=== PATIENT | female | born 1990 | race Two or more races ===

== ENCOUNTER 2018-05-12 09:54 | Emergency (ER) | payer OTHER ==
[2018-05-12 10:07] VITALS: O2SAT 99
--- NOTE | 2018-05-12 10:36 | ED PDOC ---
Lower Extremity Pain/Injury Time Seen by Provider: 05/12/18 10:12 Chief Complaint (Nursing): Lower Extremity Problem/Injury Chief Complaint (Provider): right posterior leg pain x 4 days History Per: Patient History/Exam Limitations: no limitations Onset/Duration Of Symptoms: Days Current Symptoms Are (Timing): Still Present Additional Complaint(s): 28 yo female presents at 26 weeks for evaluation of right posterior leg pain for 4 days. Pt states she has history of DVT and has been taking lovanox. Pt also reports tingling in the right foot. No fever/chills. No SOB. Pt denies vaginal bleeding and states she has been feeling the baby move. Past Medical History Reviewed: Historical Data, Nursing Documentation, Vital Signs Vital Signs: Last Vital Signs Temp 98.3 F 05/12/18 10:06 Pulse 80 05/12/18 10:06 Resp 18 05/12/18 10:06 BP 107/71 05/12/18 10:06 Pulse Ox 99 05/12/18 10:06 - Medical History PMH: Deep Vein Thrombosis, Seizures - Surgical History Surgical History: Appendectomy - Family History Family History: States: No Known Family Hx - Living Arrangements Living Arrangements: With Family - Social History Current smoker - smoking cessation education provided: No Alcohol: None Drugs: Denies - Allergies Allergies/Adverse Reactions: Allergies Allergy/AdvReac Type Severity Reaction Status Date / Time No Known Allergies Allergy Verified 05/12/18 10:14 Review of Systems ROS Statement: Except As Marked, All Systems Reviewed And Found Negative Constitutional: Negative for: Fever, Chills Musculoskeletal: Positive for: Other Physical Exam - Reviewed Nursing Documentation Reviewed: Yes Vital Signs Reviewed: Yes - Physical Exam Appears: Positive for: Well, Non-toxic, No Acute Distress Head Exam: Positive for: ATRAUMATIC, NORMAL INSPECTION, NORMOCEPHALIC Skin: Positive for: Normal Color, Warm, DRY Eye Exam: Positive for: Normal appearance ENT: Positive for: Normal ENT Inspection Neck: Positive for: Normal, Painless ROM Cardiovascular/Chest: Negative for: Bradycardia, Tachycardia Respiratory: Negative for: Accessory Muscle Use, Respiratory Distress Pulses-Dorsalis Pedis (L): 2+ Pulses-Dorsalis Pedis (R): 2+ Pulses-Post. Tibialis (L): 2+ Pulses-Post. Tibialis (R): 2+ Back: Positive for: Normal Inspection Extremity: Positive for: Normal ROM, Other (Sensation of toes intact ). Negative for: Swelling Neurologic/Psych: Positive for: Alert, Oriented - ECG O2 Sat by Pulse Oximetry: 99 Medical Decision Making Medical Decision Making: Discussed with Dr. Lee. (-) DVT on US. Dr. Burciaga aware and would like patient sent up stairs for monitoring. Disposition - Clinical Impression Clinical Impression: Right leg pain - Patient ED Disposition Is Patient to be Admitted: No Counseled Patient/Family Regarding: Diagnosis, Need For Followup - Disposition Disposition: Routine/Home Disposition Time: 11:58 Condition: STABLE Instructions: Muscle and Bone Pain (DC) Forms: [employer] (Dominican)
--- NOTE | 2018-05-12 11:21 | US ---
Date of service: 05/12/2018 PROCEDURE: Right lower extremity venous duplex Doppler. HISTORY: pain, hx dvt, 26 weeks COMPARISON: None available. TECHNIQUE: Common femoral, superficial femoral, popliteal and posterior tibial veins were evaluated. Flow was assessed with color Doppler, compressibility, assessment of phasic flow and augmentation response. FINDINGS: COMMON FEMORAL VEIN: Unremarkable. SUPERFICIAL FEMORAL VEIN: Unremarkable. POPLITEAL VEIN: Unremarkable. POSTERIOR TIBIAL VEIN: Unremarkable. OTHER FINDINGS: None. IMPRESSION: No evidence of deep venous thrombosis in the right lower extremity.
--- NOTE | 2018-05-12 13:22 | OBHP ---
Datetime: 05/12/2018 13:17 IP Adm Impression: , intrauterine IP Chief Complaint Other: leg pain IP Admit Plan: Observation/Evaluation; Discharge home Admit Comment, IP Provider: Pt is a @ 26.3 wks presented to main ER with right thigh and pain b ehind the knee. Patient has a history of DVT and currently on Lovenox, pt has a history of seizures a nd is currently on Lamictal. Pt reports the pain has been occuring for past couple of days, no skin c hanges, no asymmetrical swelling, otherwise no vaginal bleeding, leaking, +FM, no contractions. Luis A nina was evaluated in main ER, LE doppler ruled out DVT. Vital signs stable, O2 saturation = 100%. NST is reassuring, 140 mod merrick, +accels, no decels and no contractions. Patient to be discharge home, pre cautions given and follow up in office in the next 2 wks Pelvic Type - PN: Adequate Extremities - PN: Normal Abdomen - PN: Normal Back - PN: Normal Breast - PN: Normal Lungs - PN: Normal Heart - PN: Normal Thyroid - PN: Normal Neurologic - PN: Normal HEENT - PN: Normal General - PN: Normal FHR - Baseline A Provider: 140 Contraction Comments Provider: none Vital Signs Provider: Reviewed; Within Normal Limits NICHD Variability Prov Fetus A: Moderate 6-25bpm NICHD Accel Fetus A IP Provider: [id number] NICHD Decel Fetus A IP Provider: None Genitourinary Exam: Normal DTRs - PN: Normal
--- NOTE | 2018-05-12 13:22 | OBDCSUM ---
Datetime: 05/12/2018 13:18 Discharged to, Provider: Other Follow up at, Provider: Dr Burciaga Disch Instr Activity: Normal activity Disch Instr Diet: Regular Discharge Time: 05/12/2018 13:19 Follow up in weeks, Provider: per appt Discharge Diagnosis Prov Other: leg pain
[2018-05-13 14:11] VITALS: BP 109/59; PULSE 98; RESP 17; TEMP 98.4
== END 2018-05-12 12:23 | disposition home or self-care (01) ==
LOC: H.ER 09:54 → H.EROB2 09:54 → H.EROB 12:35
DX: O26.92 Pregnancy related conditions, unspecified, second trimester (principal); M79.651 Pain in right thigh; Z3A.26 26 weeks gestation of pregnancy

== ENCOUNTER 2018-08-10 09:22 | Inpatient (IN) | payer OTHER ==
[2018-08-10] MEDS ORDERED: Lactated Ringer's 1,000 ML IV ONE (09:54)
[2018-08-10 09:57] VITALS: BMI 29.9
[2018-08-10] MEDS: Lactated Ringer's 1,000 ML IV SCH (10:30)
[2018-08-10 11:42] LABS: PROTHROMBIN TIME 11.3 Seconds (9.8-13.1)
[2018-08-10 11:44] LABS: PARTIAL THROMBOPLASTIN TIME 26.6 Seconds (25.6-37.1)
[2018-08-10 21:36] LABS: BASO # 0.1 K/uL (0.0-0.2); BASO % 1.4 % (0.0-2.0); EOS # 0.1 K/uL (0.0-0.7); HEMOGLOBIN 13.6 g/dL (12.0-16.0); LYMPH # 2.5 K/uL (1.0-4.3); LYMPH % 23.7 % (20.0-40.0); MEAN CELL VOLUME 97.2 fl (81.0-99.0); MEAN CORPUSCULAR HEMOGLOBIN 33.9 pg (27.0-31.0); MEAN CORPUSCULAR HGB CONC 34.9 g/dL (33.0-37.0); MEAN PLATELET VOLUME 9.6 fl (7.2-11.7); MONO # 0.9 K/uL (0.0-0.8); MONO % 8.9 % (0.0-10.0); NEUT # 6.7 K/uL (1.8-7.0); NRBC % 0.1 % (0.0-0.0); RED CELL DISTRIBUTION WIDTH 12.7 % (11.5-14.5); WHITE BLOOD COUNT 10.4 K/uL (4.8-10.8)
--- NOTE | 2018-08-11 09:20 | OBPN ---
Datetime: 08/11/2018 09:17 IP Informed Consent Obtain: Vaginal Delivery IP Progress Plan: Continue present management Membranes, Provider: Intact FHR - Baseline A Provider: 125 IP Progress Note Comment: Patient evaluated, feeling some contractions but comfortable. VE=L/T/C as per previous MD IMM=153 mod merrick, +accels, no decels TOCO= ctxning q 5 mins A/P 1. patient evaluated, feeling increased contractions, declines pain medication at this time 2. Continue with Cytotect for induction 3. CEFM and TOCO Vital Signs Provider: Reviewed; Within Normal Limits NICHD Accel Fetus A IP Provider: 15X15 NICHD Variability Prov Fetus A: Moderate 6-25bpm NICHD Decel Fetus A IP Provider: None Datetime: 08/10/2018 10:27 Contraction Comments Provider: none FHR Category Provider Fetus A: Category I Dilatation, Provider: closed
--- NOTE | 2018-08-11 16:55 | OBPN ---
Datetime: 08/11/2018 13:49 IP Informed Consent Obtain: Vaginal Delivery IP Progress Plan: Continue present management FHR - Baseline A Provider: 125 IP Progress Note Comment: Patient evaluated, comfortable, does not want pain medication at this time VE=deferred FHR = 125 mod merrick, +accels, no decels TOCO = ctxning q 3-5 mins A/P 1. Continue current plan for induction Cytotec 50mcg PO q 4 hours 2. Continue or compression stockings for DVT prophylaxis - history of DVT and factor v heterzy gous 3. Continue Lamictal 125mg PO BID for history of epilepsy - no other precautions while being induc ed 4. CEFM and TOCO Vital Signs Provider: Reviewed; Within Normal Limits NICHD Accel Fetus A IP Provider: [id number] NICHD Variability Prov Fetus A: Moderate 6-25bpm NICHD Decel Fetus A IP Provider: None
[2018-08-12] MEDS: Lactated Ringer's 1,000 ML IV SCH ×2 (07:30→15:30)
[2018-08-12] MEDS ORDERED: Nalbuphine 20 mg/ml Inj (1 ml) IVP ONE (12:13)
[2018-08-12] MEDS ORDERED: Fentanyl/Bupivacaine HCl 250 ML EPI ONE (14:57)
--- NOTE | 2018-08-12 16:00 | OBPN ---
Datetime: 08/12/2018 11:20 IP Procedures Other: Cook catheter placement IP Informed Consent Obtain: Vaginal Delivery; Induction of Labor IP Progress Plan: Continue present management; Induction Membranes, Provider: Intact FHR - Baseline A Provider: 150 Gestation - Est Wks by US: 40.5 Presentation-Admit: Vertex Vital Signs Provider: Reviewed; Within Normal Limits NICHD Accel Fetus A IP Provider: 15X15 FHR Category Provider Fetus A: Category I NICHD Variability Prov Fetus A: Moderate 6-25bpm NICHD Decel Fetus A IP Provider: None Datetime: 08/12/2018 09:24 Contraction Comments Provider: Sporadic IP Progress Note Comment: S: Began feeling some contractions early this morning, reports small amoun t of bloody discharge O: see exam section A/P: 28 year old admitted 08/10 for IOL secondary to maternal history of Factor V Leiden and E pilepsy. So far patient has received 1 cervidil and 6 doses of cytotec. Cervix is still unfavorable f or pitocin - Plan was to place Cook catheter, however there are none in stock in the hospital. If we can't ge t one from a surrounding hospital in the next 1-[address] another cervidil - Factor V: patient has been off Heparin for >48 hours, SCDs ordered - Epilepsy: continue Lamictal - There is a reported history of suspected LGA, last US done 1 week ago (that record is not availa ble) and parents reports EFW just over 8 lbs, Sanya's consistent with approximately 8 1/2 lbs - presentation confirmed vertex by US - GBS negative OB Hospitalist on-call. Pt seen on rounds this morning. She was given Cervidil and Cytotec. Con dition and treatment plan discussed. She understands. MAHNDO Dilatation, Provider: 1 Effacement, Provider: 10 Station, Provider: -3
--- NOTE | 2018-08-12 16:01 | OBPN ---
Datetime: 08/12/2018 16:00 IP Progress Note Comment: Pt feel better after epidural. Pitoicn was at 6miu/h and stopped for anes thesia. Will re-start Pitocin FHR Category Provider Fetus A: Category I
[2018-08-13] MEDS: Lactated Ringer's 1,000 ML IV SCH ×2 (09:00→17:03)
[2018-08-13] MEDS ORDERED: Fentanyl/Bupivacaine HCl 250 ML EPI ONE ×2 (09:35→20:56)
[2018-08-14] MEDS: Lactated Ringer's 1,000 ML IV SCH ×2 (04:00)
[2018-08-14] MEDS ORDERED: Oxytocin 30 units/LR 500ML 30 UNITS/500 ML BAG IV ONE (04:19)
[2018-08-14] MEDS ORDERED: OXYTOCIN/0.9 % NS 20 UNIT/1,000 ML BAG IV SCH ×2 (04:30→11:45)
[2018-08-14] MEDS ORDERED: ceFAZolin IV 2 gm in Dextrose 2 GM/50 ML BAG IVPB ONE (06:34)
[2018-08-14] MEDS ORDERED: Lidocaine 2% PF (10 ml) Amp ONE (06:46)
[2018-08-14] MEDS ORDERED: Phenylephrine 10 mg/ml Inj ONE (07:03)
[2018-08-14] MEDS ORDERED: Lidocaine 2% MPF (5 ml) Inj ONE (07:03)
[2018-08-14] MEDS ORDERED: Morphine 1 mg/ml preservative-free Inj(Duramorph) ONE ×2 (07:33→08:14)
--- NOTE | 2018-08-14 08:24 | OBDS ---
DELIVERY PERSONNEL Delivery Doctor: Jhon Greco MD Internal Medicine Specialist: Anali Friedman RN MATERNAL INFORMATION Delivery Anesthesia: Epidural Medications in Delivery: Pitocin, cytotec, cervidil, lamectal, ancef (Annotations: Data stored by Sherri on behalf of user) Placenta Cultured: No Maternal Complications: None Provider Comments: see operative report LABOR SUMMARY EDC: 08/15/2018 00:00 No. Babies in Womb: 1 Attempted: No Labor Anesthesia: None LABOR INFORMATION Reason for Induction: Not Applicable Cervical Ripening Agents: Rubio Balloon Other Ripening Agents: see mar Group B Beta Strep: Negative MEMBRANES Membranes Rupture Method: Artificial Amniotic Fluid Color: Bloody Amniotic Fluid Amount: Moderate Amniotic Fluid Odor: None STAGES OF LABOR Stage 3 hrs: 0 Stage 3 min: 1 BABY A INFORMATION Delivery Date/Time: 08/14/2018 07:41 Method of Delivery: Born in Route : No : N/A Forceps: N/A Vacuum Extraction: N/A Shoulder Dystocia : No SHOULDER DYSTOCIA BABY A Delivery Date/Time: 08/14/2018 07:41 PRESENTATION/POSITION BABY A Presentation: Cephalic (Annotations: Data stored by [facility] on behalf of user) PLACENTA INFORMATION BABY A Placenta Delivery Time : 08/14/2018 07:42 Placenta Method of Delivery: Manual Removal Placenta Status: Delivered SCORES BABY A Heart Rate 1 min: >100 bpm Resp Effort 1 min: Good Cry Reflex Irritability 1 min: Cough or Sneeze or Pulls Away Muscle Tone 1 min: Active Motion Color 1 min: Body [place], Extremities Blue Resuscitation Effort 1 min: Tactile Stimulation SCORE 1 MIN: 9 Heart Rate 5 min: >100 bpm Resp Effort 5 min: Good Cry Reflex Irritability 5 min: Cough or Sneeze or Pulls Away Muscle Tone 5 min: Active Motion Color 5 min: Body [place], Extremities Blue Resuscitation Effort 5 min: N/A SCORE 5 MIN: 9 INFANT INFORMATION BABY A Gestational Age at Delivery: 39.6 Gestational Status: Term Outcome : Liveborn Infant Condition : Stable Sex: Male IDENTIFICATION/MEDS BABY A ID Band Number: [id number] WEIGHT/LENGTH BABY A Infant Birthweight (gms): 4050 Weight (lb): 8 Weight (oz): 15 CORD INFORMATION BABY A No. Cord Vessels: 3 Nuchal Cord : N/A Cord Blood Taken: Yes Suction: Mouth
[2018-08-14] MEDS ORDERED: DiphenhydrAMINE 50 mg/ml Inj IVP PRN ×2 (08:43→11:45)
[2018-08-14] MEDS ORDERED: Oxycodone/Acetaminophen 5/325 mg Tab PO PRN ×2 (08:49→15:26)
[2018-08-14] MEDS ORDERED: Enoxaparin 40 mg Syringe SC SCH (09:00)
[2018-08-14] MEDS ORDERED: Multivitamin With Minerals Tab PO SCH (09:00)
[2018-08-14] MEDS ORDERED: Lactated Ringer's 1,000 ML IV SCH (11:45)
[2018-08-14 12:53] LABS: HEMOGLOBIN 11.6 g/dL (12.0-16.0); MEAN CELL VOLUME 98.2 fl (81.0-99.0); MEAN CORPUSCULAR HEMOGLOBIN 33.8 pg (27.0-31.0); MEAN CORPUSCULAR HGB CONC 34.4 g/dL (33.0-37.0); RBC 3.44 Mil/uL (3.80-5.20); RED CELL DISTRIBUTION WIDTH 12.6 % (11.5-14.5); WHITE BLOOD COUNT 12.9 K/uL (4.8-10.8)
[2018-08-14 13:03] LABS: ALB/GLOB RATIO 0.9 (1.0-2.1); ALBUMIN 2.5 g/dL (3.5-5.0); ALT/SGPT 30 U/L (9-52); AST/SGOT 34 U/L (14-36); BLOOD UREA NITROGEN 14 mg/dl (7-17); CALCIUM 8.5 mg/dL (8.4-10.2); GFR NON-AFRICAN AMERICAN > 60
[2018-08-14] MEDS ORDERED: Enoxaparin 40 mg Syringe SC STA (19:57)
[2018-08-14] MEDS: Oxycodone/Acetaminophen 5/325 mg Tab PO PRN (20:20)
[2018-08-15] MEDS: Oxycodone/Acetaminophen 5/325 mg Tab PO PRN ×2 (02:01→05:46)
[2018-08-15 06:28] LABS: HEMOGLOBIN 12.7 g/dL (12.0-16.0); MEAN CELL VOLUME 97.6 fl (81.0-99.0); MEAN CORPUSCULAR HEMOGLOBIN 33.4 pg (27.0-31.0); MEAN CORPUSCULAR HGB CONC 34.2 g/dL (33.0-37.0); RBC 3.8 Mil/uL (3.80-5.20); RED CELL DISTRIBUTION WIDTH 12.8 % (11.5-14.5); WHITE BLOOD COUNT 14.1 K/uL (4.8-10.8)
--- NOTE | 2018-08-15 08:21 | OP ---
PROCEDURE DATE: 08/14/18 PREOPERATIVE DIAGNOSIS: Arrest of descent despite adequate uterine contractions. POSTOPERATIVE DIAGNOSIS: Arrest of descent despite adequate uterine contractions. OPERATION PERFORMED: A primary low flap transverse section via Pfannenstiel skin incision. SURGEON: Celestino Greco MD STEEL DIE ENGRAVER: Dr. Elida Marshall. ANESTHESIA: Epidural. ANESTHESIA ADMINISTERED BY: Dr. Jung. ESTIMATED BLOOD LOSS: 800 mL. URINE OUTPUT: Rubio catheter put out approximately 100 mL of clear urine. INTRAVENOUS FLUIDS: The patient received 800 mL of D5 LR intraoperatively. OPERATIVE FINDINGS: Baby boy, vertex presentation, Apgars 9 and 9, weighing 4050 g, 8 pounds 15 ounces. Normal uterus, tubes, and ovaries were identified. DESCRIPTION OF PROCEDURE: After informed consent was obtained, the patient was taken to the operating room where she was given epidural anesthesia. She was then prepped and draped in a normal sterile fashion with a leftward tilt. A Pfannenstiel skin incision was then made with a scalpel and carried down to the underlying layer of fascia. The fascia was nicked in the midline. The fascial incision was then extended laterally with the curved Green scissors. The superior aspect of the fascial incision was then grasped with Sarah clamps, elevated up, and the rectus muscles were dissected off using both sharp and blunt dissection. Attention was then turned to the inferior aspect of the fascial incision, which in similar fashion was grasped with Sarah clamps, elevated up, and the rectus muscles were dissected off using both sharp and blunt dissection. The rectus muscles were then in the midline. The peritoneum identified and entered sharply with the Metzenbaum scissors. Peritoneal incision was then extended superiorly and inferiorly with good visualization of the bladder. The bladder blade was inserted. The vesicouterine peritoneum was identified and entered sharply with the Metzenbaum scissors. Incision was then extended laterally. The bladder flap was created digitally. Bladder bed was then readjusted and lower transverse incision was made with the scalpel. The incision was then extended laterally with the bandage scissors. The 's head was then delivered atraumatically. The nose and mouth were suctioned with DeLee suction trap. The cord was clamped and cut. The was handed off to awaiting pediatricians. The placenta was then removed manually. The uterus was exteriorized and cleared of all clots and debris. The uterine incision was repaired with 0 Vicryl in a running locked fashion. A second layer of the same suture was used to obtain excellent hemostasis. The uterus was returned to the abdomen. The gutters were packed. The abdomen was copiously irrigated. The irrigant was removed with a suction device and the incision was noted to be hemostatic. The packing was removed. The peritoneum was then closed with 2-0 Vicryl in a running fashion. The muscle was reapproximated with 0 Vicryl in an interrupted fashion and the skin was closed with 3-0 on a Sg needle. All sponge, lap, needle, and instrument counts were correct x2 and the patient was taken to recovery room in awake and stable condition. Celestino Greco MD
[2018-08-15] MEDS ORDERED: Enoxaparin 40 mg Syringe SC SCH (09:00)
[2018-08-15] MEDS: Multivitamin With Minerals Tab PO SCH (09:49)
--- NOTE | 2018-08-15 10:28 | OBPPN ---
Datetime: 08/15/2018 10:24 PP Pain Prov: Within normal limits PP Nausea Prov: Denies PP Flatus Prov: Yes PP Breasts Prov: Normal PP Heart Prov: Normal PP Lungs Prov: Normal PP Abdomen/Uterus Prov: Normal PP Lochia Prov: Normal PP Vulva/Perineum Prov: Normal PP CVA Tenderness Prov: Normal PP Extremities Prov: Normal PP Comments Phys Exam Prov: Fundus firm under umbilicus Incision clean/dry/intact PP Impression Prov: Normal progression PP Plan Prov: Continue present management PP Progress Note Prov: Patient denies CP, no SOB, no N/V, tolerating PO diet, ambulating/voiding wel l, mild lochia, abdominal pain tolerable with meds, +flatus A/p 1. Continue current postop orders 2. Percocet/Motrin prn pain 3. Lovenox 80mg SQ BID daily and Lamictal 125mg PO BID 4. Encourage ambulation/ IP PP Procedures: None Vital Signs Provider PP: Reviewed; Within Normal Limits
[2018-08-15] MEDS ORDERED: Promethazine 12.5 MG in Sodium Chloride 0.9% 50 ML IVPB PRN (15:19)
[2018-08-15] MEDS ORDERED: BENZOCAINE SPR MM PRN (15:42)
[2018-08-15] MEDS: Lactated Ringer's 1,000 ML IV SCH ×2 (16:00→22:15)
--- NOTE | 2018-08-15 16:14 | PCM.PROC ---
Procedures Attestation:: I certify that I have explained the specified Operation(s) or Procedure(s), risks, benefits and reasonable alternatives to the Patient and/or other person responsible. The opportunity was given to ask questions and all questions answered - Feeding Tube Replacement Type of Tube: nasogastric Insertion Site Prior to Procedure: clean Tube Used for Reinsertion: Bard Georgian Tube Size (F): 16 Verification of Placement: KUB Tube Secured by: tape/dressing Patient Tolerated Procedure: well, no complications Additional comments: Called by Dr. Burciaga for NGT placement assistance for post op ileus. NGT inserted in the Left nares and secured at 55cm. Patient tolerated well. An initial 350cc of bilious gastric output immediately returned. Confirmation of placement with CXR which shows adequate placement of NGT. Cont NGT on LCWS at a pressure of 80mmhg. Can clamp if patient would like to ambulate.
--- NOTE | 2018-08-15 16:18 | OBPPN ---
Datetime: 08/15/2018 15:55 PP Pain Prov: Within normal limits PP Nausea Prov: Present PP Flatus Prov: No PP BM Prov: No PP Breasts Prov: Normal PP Heart Prov: Normal PP Lungs Prov: Normal PP Abdomen/Uterus Prov: Abnormal PP Lochia Prov: Normal PP Vulva/Perineum Prov: Normal PP CVA Tenderness Prov: Normal PP Extremities Prov: Normal PP C/S Incision Prov: Normal PP Progress Prov: Normal PP Comments Phys Exam Prov: abdomen distended, high pitched bowel sounds in all 4 quadrants PP Progress Note Prov: Patient evaluated - vomited about 5 times bilious material, nauseous and has abdominal distention. Patient ambulating minimal, mild lochia, no flatus, abdominal pain appropriate A/P 1. Patient evaluated and suspicious for an ileus. Discussed plan of care with patient, strict NPO, strict I's/Os, CBC/CMP, LR @ 150 mL 2. vice president corporate communications present and assisted with inserting NG tube and attaching to wall suction 3. X-ray ordered to confirm placement 4. Will convert all meds to IV Vital Signs Provider PP: Reviewed
[2018-08-15 16:34] LABS: ALB/GLOB RATIO 0.9 (1.0-2.1); ALBUMIN 2.8 g/dL (3.5-5.0); ALT/SGPT 22 U/L (9-52); AST/SGOT 33 U/L (14-36); BLOOD UREA NITROGEN 11 mg/dl (7-17); CALCIUM 9.3 mg/dL (8.4-10.2); GFR NON-AFRICAN AMERICAN > 60
--- NOTE | 2018-08-15 16:35 | RAD ---
Date of service: 08/15/2018 HISTORY: NGT placement COMPARISON: No prior. FINDINGS: LUNGS: A nasogastric tube is identified placed terminating at the left upper quadrant abdomen. No acute pulmonary disease appreciated bilaterally. PLEURA: No significant pleural effusion identified, no pneumothorax apparent. CARDIOVASCULAR: No aortic atherosclerotic calcification present OSSEOUS STRUCTURES: No significant abnormalities. VISUALIZED UPPER ABDOMEN: Gas seen mildly distending small large-bowel loops in the upper abdomen as imaged. OTHER FINDINGS: None. IMPRESSION: Adequate nasogastric tube deployment. No acute infiltrates or pleural effusion bilaterally. No pulmonary vascular congestion.
[2018-08-15 16:50] LABS: BASO % 0.2 % (0.0-2.0); HEMOGLOBIN 12.4 g/dL (12.0-16.0); LYMPH # 0.8 K/uL (1.0-4.3); LYMPH % 5.6 % (20.0-40.0); MEAN CELL VOLUME 99.3 fl (81.0-99.0); MEAN CORPUSCULAR HEMOGLOBIN 33.9 pg (27.0-31.0); MEAN CORPUSCULAR HGB CONC 34.1 g/dL (33.0-37.0); MEAN PLATELET VOLUME 9.6 fl (7.2-11.7); MONO # 0.6 K/uL (0.0-0.8); MONO % 4.6 % (0.0-10.0); NEUT # 12.2 K/uL (1.8-7.0); NEUT % 89.6 % (50.0-75.0); PLATELET COUNT 177 K/uL (130-400); RBC 3.67 Mil/uL (3.80-5.20); RED CELL DISTRIBUTION WIDTH 12.8 % (11.5-14.5); WHITE BLOOD COUNT 13.6 K/uL (4.8-10.8)
[2018-08-15 20:19] LABS: BANDS 2 % (0-2); LYMPHOCYTE 8 % (20-50); MONOCYTE 5 % (0-10); NEUTROPHIL 85 % (42-75); TOTAL CELLS COUNTED 100
[2018-08-15 20:20] LABS: ANISOCYTOSIS SLIGHT; PLATELET ESTIMATE NORMAL (NORMAL)
--- NOTE | 2018-08-15 20:38 | OBPPN ---
Datetime: 08/15/2018 20:28 PP Pain Prov: Within normal limits PP Nausea Prov: Denies PP Flatus Prov: No PP Breasts Prov: Normal PP Heart Prov: Normal PP Lungs Prov: Normal PP Abdomen/Uterus Prov: Normal PP Lochia Prov: Normal PP Vulva/Perineum Prov: Normal PP CVA Tenderness Prov: Normal PP Extremities Prov: Normal PP Comments Phys Exam Prov: Abdomen decreased in distention PP Progress Note Prov: Patient evaluated, feeling increased burping, no flatus as of yet, no new N/V , abdominal distention improving, abdominal pain tolerable, ambulating minimal, voiding well, NG tube output 450mL bilious fluid A/P 1. Patient slowly improving, minimal fluid coming from tube, total now 450 greenish bilious fluid. Patient reports increased burping, no flatus yet. 2. Plan is if still minimal fluid draining, +BS and +flatus, will cap tube in the AM and wait for patient to be re-evaluated for possible PO oral intake. 3. Otherwise continue Lovenox 80mg SQ and all other orders Vital Signs Provider PP: Reviewed; Within Normal Limits
[2018-08-15] MEDS: Enoxaparin 40 mg Syringe SC SCH (21:05)
[2018-08-16] MEDS: Lactated Ringer's 1,000 ML IV SCH ×2 (05:16→23:23)
--- NOTE | 2018-08-16 08:10 | OBPPN ---
Datetime: 08/16/2018 08:01 PP Pain Prov: Within normal limits PP Nausea Prov: Denies PP Flatus Prov: Yes PP BM Prov: Yes PP Breasts Prov: Normal PP Heart Prov: Normal PP Lungs Prov: Normal PP Abdomen/Uterus Prov: Normal PP Lochia Prov: Normal PP Vulva/Perineum Prov: Normal PP CVA Tenderness Prov: Normal PP Extremities Prov: Normal PP Comments Phys Exam Prov: Fundus firm under umbilicus Incision clean/dry/intact Abdomen soft, non-tender except at incision area, +BS in all 4 quadrants PP Progress Note Prov: Patient feeling well, denies CP, no SOB, no N/V, minimal ambulation, voiding well, abdominal pain improved, passing flatus and +BM, mild lochia, NG output overnight 200cc of dark bilious material, otherwise 2000cc of urine overnight A/P POD #2 1. Patient overall improving. Abdomen noticeably less distended, patient burping and passing flatu s, +multiple BM. +BS heard in all four quadrants this morning. 2. NG tube capped, will observe for 4 hours to see that patient continues improvement 3. Continue postoperative orders - lamictal this morning to be given via NG tube. Continue all oth er medications IV 4. Otherwies continue ambulation/ Vital Signs Provider PP: Reviewed; Within Normal Limits
[2018-08-16] MEDS: Multivitamin With Minerals Tab PO SCH (08:40)
--- NOTE | 2018-08-16 10:01 | OBPPN ---
Datetime: 08/16/2018 09:40 PP Progress Note Prov: OB Hospitalist on-call...sign out rec'd...will have surgery follow up for pos t op ileus/NG tube. Contacted Dr Hall
[2018-08-16] MEDS: Enoxaparin 40 mg Syringe SC SCH (21:16)
[2018-08-17] MEDS: Lactated Ringer's 1,000 ML IV SCH ×3 (06:15→14:50)
--- NOTE | 2018-08-17 08:13 | CP.PCM.PN ---
<Dean Law - Last Filed: 08/17/18 08:10> Subjective - Date & Time of Evaluation Date of Evaluation: 08/17/18 Time of Evaluation: 08:11 - Subjective Subjective: SURGERY NOTE FOR DR. CORREIA 28F seen and examined at bedside. Patient states she has been having flatus and bowel movements. She admits to tolerating liquid diet. Objective - Vital Signs/Intake and Output Vital Signs (last 24 hours): Temp Pulse Resp BP Pulse Ox 98.5 F 08/15/18 09:55 - Medications Medications: Current Medications Benzocaine (Topex Anesthetic) 1 spr MM PRN PRN PRN Reason: Pain, Mild (1-3) Last Admin: 08/15/18 16:38 Dose: 1 spr Diphenhydramine HCl (Benadryl) 50 mg IVP Q6 PRN PRN Reason: Itching / Pruritus Docusate Sodium (Colace) 100 mg PO BID [facility] Last Admin: 08/16/18 08:39 Dose: Not Given Enoxaparin Sodium (Lovenox) 40 mg SC DAILY@2100 K[facility]; Protocol Last Admin: 08/16/18 21:16 Dose: 40 mg Promethazine HCl 12.5 mg/ (Sodium Chloride) 50.5 mls @ 101 mls/hr IVPB Q6 PRN PRN Reason: Nausea/Vomiting Lactated Ringer's (Lactated Ringer's) 1,000 mls @ 150 mls/hr IV .Q6H40M [facility] Last Admin: 08/17/18 06:15 Dose: 150 mls/hr Ibuprofen (Motrin Tab) 600 mg PO Q6H [facility] Last Admin: 08/16/18 15:00 Dose: Not Given Ketorolac Tromethamine (Toradol) 15 mg IVP Q6 PRN PRN Reason: Pain, Mild (1-3) Last Admin: 08/17/18 06:13 Dose: 15 mg Lamotrigine (Lamictal) 125 mg PO BID [facility] Last Admin: 08/16/18 17:30 Dose: 125 mg Morphine Sulfate (Morphine) 1 mg IVP Q6 PRN PRN Reason: Pain, moderate (4-7) Last Admin: 08/15/18 16:07 Dose: 1 mg Multivitamins/Minerals (Therapeutic-M Tab) 1 tab PO DAILY [facility] Last Admin: 08/16/18 08:40 Dose: Not Given Ondansetron HCl (Zofran Inj) 4 mg IVP Q6 PRN PRN Reason: Nausea/Vomiting Last Admin: 08/15/18 11:03 Dose: 4 mg Oxycodone/Acetaminophen (Percocet 5/325 Mg Tab) 1 tab PO Q4 PRN PRN Reason: Pain, moderate (4-7) Stop: 08/17/18 08:50 Last Admin: 08/15/18 05:46 Dose: 1 tab Oxycodone/Acetaminophen (Percocet 5/325 Mg Tab) 2 tab PO Q6 PRN PRN Reason: Pain, severe (8-10) Stop: 08/17/18 15:27 Sennosides (Senokot Tab) 17.2 mg PO HS [facility] Last Admin: 08/16/18 21:21 Dose: Not Given - Labs Labs: 08/15/18 15:48 08/15/18 15:48 PT 11.3 Seconds (9.8-13.1) 08/10/18 11:10 INR 1.0 08/10/18 11:10 APTT 26.6 Seconds (25.6-37.1) 08/10/18 11:10 - Constitutional Appears: Non-toxic, No Acute Distress - Respiratory Exam Respiratory Exam: Clear to Ausculation Bilateral, NORMAL BREATHING PATTERN - Cardiovascular Exam Cardiovascular Exam: REGULAR RHYTHM, +S1, +S2 - GI/Abdominal Exam GI & Abdominal Exam: Soft. absent: Distended, Firm, Guarding, Rigid, Tenderness, Rebound - Neurological Exam Neurological Exam: Alert, Awake - Skin Skin Exam: Dry, Intact, Normal Color, Warm Assessment and Plan - Assessment and Plan (Free Text) Assessment: 28F post Op ileus s/p , resolved. Plan: - advance diet as tolerated - monitor for further BMs Discussed with Dr. Rafael Law, PGY3 <Jack Correia - Last Filed: 08/17/18 12:29> Objective - Vital Signs/Intake and Output Vital Signs (last 24 hours): Temp Pulse Resp BP Pulse Ox 98.5 F 08/15/18 09:55 - Medications Medications: Current Medications Benzocaine (Topex Anesthetic) 1 spr MM PRN PRN PRN Reason: Pain, Mild (1-3) Last Admin: 08/15/18 16:38 Dose: 1 spr Diphenhydramine HCl (Benadryl) 50 mg IVP Q6 PRN PRN Reason: Itching / Pruritus Docusate Sodium (Colace) 100 mg PO BID [facility] Last Admin: 08/17/18 10:32 Dose: 100 mg Enoxaparin Sodium (Lovenox) 80 mg SC DAILY [facility]; Protocol Promethazine HCl 12.5 mg/ (Sodium Chloride) 50.5 mls @ 101 mls/hr IVPB Q6 PRN PRN Reason: Nausea/Vomiting Lactated Ringer's (Lactated Ringer's) 1,000 mls @ 150 mls/hr IV .Q6H40M [facility] Last Admin: 08/17/18 08:00 Dose: Not Given Ibuprofen (Motrin Tab) 600 mg PO Q6H [facility] Last Admin: 08/17/18 09:00 Dose: Not Given Ketorolac Tromethamine (Toradol) 15 mg IVP Q6 PRN PRN Reason: Pain, Mild (1-3) Last Admin: 08/17/18 06:13 Dose: 15 mg Lamotrigine (Lamictal) 125 mg PO BID [facility] Last Admin: 08/17/18 10:31 Dose: 125 mg Morphine Sulfate (Morphine) 1 mg IVP Q6 PRN PRN Reason: Pain, moderate (4-7) Last Admin: 08/15/18 16:07 Dose: 1 mg Multivitamins/Minerals (Therapeutic-M Tab) 1 tab PO DAILY [facility] Last Admin: 08/17/18 10:31 Dose: 1 tab Ondansetron HCl (Zofran Inj) 4 mg IVP Q6 PRN PRN Reason: Nausea/Vomiting Last Admin: 08/15/18 11:03 Dose: 4 mg Oxycodone/Acetaminophen (Percocet 5/325 Mg Tab) 2 tab PO Q6 PRN PRN Reason: Pain, severe (8-10) Stop: 08/17/18 15:27 Sennosides (Senokot Tab) 17.2 mg PO HS [facility] Last Admin: 08/16/18 21:21 Dose: Not Given - Labs Labs: 08/15/18 15:48 08/15/18 15:48 PT 11.3 Seconds (9.8-13.1) 08/10/18 11:10 INR 1.0 08/10/18 11:10 APTT 26.6 Seconds (25.6-37.1) 08/10/18 11:10 Assessment and Plan - Assessment and Plan (Free Text) Plan: ok to d/c home when ob clear
[2018-08-17] MEDS ORDERED: Enoxaparin 80 mg Syringe SC SCH ×2 (09:00→21:00)
--- NOTE | 2018-08-17 10:12 | OBPPN ---
Datetime: 08/17/2018 10:08 PP Pain Prov: Within normal limits PP Nausea Prov: Denies PP Flatus Prov: Yes PP BM Prov: Yes PP Breasts Prov: Normal PP Heart Prov: Normal PP Lungs Prov: Normal PP Abdomen/Uterus Prov: Normal PP Lochia Prov: Normal PP Vulva/Perineum Prov: Normal PP CVA Tenderness Prov: Normal PP Extremities Prov: Normal PP Comments Phys Exam Prov: Fundus firm under umbilicus Incision clean/dry/intact PP Impression Prov: Normal progression PP Plan Prov: Continue present management PP Progress Note Prov: Patient improving overall, No CP, no SOB, no N/V, tolerating PO liquid diet, +flatus and multiple BM, Ambulating/voiding well, mild lochia A/P POD #3, s/p recovering from post-op ileus 1. Patient doing well. +flatus and multiple BM, tolerating PO liquids well. Will advance diet slow ly today, soft diet for lunch and reg diet for dinner. If patient continues to recover well discharge for tomorrow 2. Continue post-op orders including Lovenox 80mg SC daily and Lamictal 125mg PO BID 3. Encourage ambulation/ IP PP Procedures: None
[2018-08-17] MEDS: Multivitamin With Minerals Tab PO SCH (10:31)
--- NOTE | 2018-08-18 07:17 | OBPPN ---
Datetime: 08/18/2018 07:12 PP Pain Prov: Within normal limits PP Nausea Prov: Denies PP Flatus Prov: No PP BM Prov: Yes PP Abdomen/Uterus Prov: Normal PP Lochia Prov: Normal PP Extremities Prov: Normal PP C/S Incision Prov: Normal PP Progress Prov: Normal PP Comments Phys Exam Prov: Incision: intact w/ steri strips PP Impression Prov: Normal progression PP Plan Prov: Discharge PP Progress Note Prov: POD 4 s/p c/s for NRFHT, s/p post-op ileus, doing well, breast and bottle fee ding Rx's motrin and percocet given Pt will continue lovenox and lamictal Discharge home today Vital Signs Provider PP: Reviewed
--- NOTE | 2018-08-18 07:17 | OBDCSUM ---
Datetime: 08/18/2018 07:15 Discharged to, Provider: Home Follow up at, Provider: [facility] Disch Instr Diet: Regular Discharge Instructions, Provider: Routine instructions given Discharge Diagnosis, Provider: Term Delivered Discharge Time: 08/18/2018 07:15 Follow up in weeks, Provider: 1 week
[2018-08-18] MEDS: Multivitamin With Minerals Tab PO SCH (08:43)
[2018-08-18 16:37] VITALS: BP 101/61; PULSE 88; RESP 20; TEMP 97.9; O2SAT 99
== END 2018-08-18 11:35 | disposition home or self-care (01) | DRG 787 ==
LOC: H.EROB2 09:22 → H.L&D 09:54 → H.OB/GYN 08-14 19:41
PROVIDERS: ADMIT Obstetrics & Gynecology Gynecology; ATTEND Obstetrics & Gynecology Gynecology
PROC: 4A1HXCZ Monitoring of Products of Conception, Cardiac Rate, External Approach (ICD-10-PCS; 2018-08-10)
PROC: 10D00Z1 Extraction of Products of Conception, Low, Open Approach (ICD-10-PCS; principal; 2018-08-14)
DX: O76 Abnormality in fetal heart rate and rhythm complicating labor and delivery (principal); O99.12 Other diseases of the blood and blood-forming organs and certain disorders involving the immune mechanism complicating childbirth; D68.51 Activated protein C resistance; O99.354 Diseases of the nervous system complicating childbirth; O62.1 Secondary uterine inertia; Z3A.39 39 weeks gestation of pregnancy; Z37.0 Single live birth; G40.909 Epilepsy, unspecified, not intractable, without status epilepticus